=== PATIENT | female | born 1980 | race Caucasian/White ===

== ENCOUNTER 2022-07-20 08:01 | Emergency (ER) | payer OTHER, SELFPAY ==
--- NOTE | 2022-07-20 08:11 | ED.GENADULT ---
HPI - General Adult General Chief complaint: Upper Respiratory Infection Stated complaint: sorethroat Time Seen by Provider: 07/20/22 08:11 Source: patient Mode of arrival: ambulatory Limitations: no limitations History of Present Illness HPI narrative: 42-year-old female patient presents to the [facility] with complaints of sore throat that started last night along with bilateral ear pain and body aches. No fevers that she is aware of. 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 Related Data Home Medications Medication Instructions Recorded Confirmed semaglutide 0.25 mg or 0.5 mg (2 0.25 mg subcut WEEKLY 07/20/22 07/20/22 mg/1.5 mL) subcutaneous pen injector (Ozempic) Allergies Allergy/AdvReac Type Severity Reaction Status Date / Time iodine Allergy Severe SHOCK Verified 07/20/22 08:21 CEFADROXIL HYDRATE Allergy Intermediate HIVES Uncoded 07/20/22 08:21 Review of Systems Review of Systems: CONSTITUTIONAL: Denies fever, chills, or sweats. EYES: Denies visual changes, redness, or discharge. ENT: Denies rhinorrhea, congestion, Positive sore throat, positive bilateral otalgia. CARDIOVASCULAR: Denies chest pain, palpitations, or edema. RESPIRATORY: Denies cough or dyspnea. GASTROINTESTINAL: Denies abdominal pain, nausea, vomiting, or diarrhea. GENITOURINARY: Denies dysuria or hematuria. SKIN: Denies rash or itching. MUSCULOSKELETAL: Denies back pain, joint pain, or myalgia. NEUROLOGIC: Denies headache, numbness, or weakness. PSYCHIATRIC: Denies anxiety or depression. [facility] Past Medical History Medical History Anxiety BMI 38.0-38.9,adult COVID-19 Depression Encounter for IUD insertion 10/07/12 Mirena insertion 12/15/14 Paragard insertion Encounter for IUD removal 07/12/13 Mirena removal 09/01/17 Paragard removal Encounter to establish care Hx of headache Migraines Seasonal allergies Vitamin D deficiency Surgical History Surgical History History of bilateral salpingectomy (10/23/17) History of bladder suspension procedure (09/04/20) History of endometrial ablation (10/23/17) hscope endometrial ablation/b lscope salping Hx of section 04/25/10 primary c/s--arrest of dilation, direct oblique presentation position 05/26/12 rpt c/s 10/18/14 rpt c/s Family History Family History Father Diabetes mellitus Hypertension Mother Hypertension Grandparent Depression Cerebrovascular accident maternal grandfather Breast cancer maternal grandmother Grandparent Heart disease Diabetes mellitus paternal grandmother Social History Social History Smoking status: Never smoker Alcohol intake: never Substance use: never Comments At the time of my signature I agree with nursing past medical history, surgical, social, and family history. There is no relevant family history pertinent to the presenting complaint. Exam Narrative: GENERAL: Well-appearing, well-nourished, and in no acute distress. HEAD: Normocephalic, atraumatic. EYES: PERRLA and EOMI. ENT: Nares clear, no rhinorrhea or epistaxis. Mucous membranes moist. posterior pharynx with erythema present. No tonsillar enlargement, no exudates or lesions present. Bilateral TMs do show a little bit of fluid behind the TMs. NECK: Supple. No lymphadenopathy CHEST: Clear to auscultation. No respiratory distress. HEART: Regular rate and rhythm. No murmur heard. Normal peripheral pulses. ABDOMEN: Soft, nontender, nondistended, normal active bowel sounds. EXTREMITIES: Normal range of motion. No edema. SKIN: Warm, dry, no rash. NEURO: No focal deficits. Alert and oriented x3. Course Course Level of Care: Express Care Visit Vital Signs
[2022-07-20 08:26] VITALS: BP 116/75; PULSE 84; RESP 16; TEMP 36.4; O2SAT 100
== END 2022-07-20 08:33 | disposition home or self-care (01) ==
PROVIDERS: Emergency Provider Nurse Practitioner Family; PCP Family Medicine
DX: J02.0 Streptococcal pharyngitis (principal)
CPT/HCPCS: 87880; 99213; G0463

== ENCOUNTER → 2022-09-12 16:45 | Outpatient (CLI) | payer OTHER, SELFPAY ==
--- NOTE | ~2022-09-12 | MM_ITS ---
EXAMINATION: MM screening gregory BI w price HISTORY: Screening mammogram TECHNIQUE: Craniocaudal and mediolateral oblique 3-D tomosynthesis images were obtained and synthetic 2-D images were generated. CAD analysis was submitted and interpreted. COMPARISON: None BREAST PARENCHYMAL COMPOSITION:The breasts are almost entirely fatty FINDINGS: There is a 1 cm round low-density asymmetry in the inner right breast, only seen on CC view . No parenchymal abnormality of the left breast seen. No suspicious calcifications in either breast. IMPRESSION: 1 cm round low-density asymmetry the inner right breast. This could reflect a mass lesion or possibl y skin lesion. Spot compression view with skin marker (if there is any corresponding skin lesion) and true lateral view, and possibly ultrasound, are recommended for further evaluation at this time. BI-RADS Category 0: Incomplete: Needs additional imaging evaluation. Reviewed, dictated and finalized at [facility]. IMPRESSION: 1 cm round low-density asymmetry the inner right breast. This could reflect a mass lesion or possibly skin lesion. Spot compression view with skin marker (if there is any corresponding skin lesion) and true lateral view, and possibly ul trasound, are recommended for further evaluation at this time. BI-RADS Category 0: Incomplete: Needs additional imaging evaluation.
== END ==
PROVIDERS: PCP Family Medicine; Visit Provider Family Medicine
DX: Z12.31 Encounter for screening mammogram for malignant neoplasm of breast (principal); N64.89 Other specified disorders of breast
CPT/HCPCS: 77063; 77067

== ENCOUNTER → 2022-10-11 13:51 | Outpatient (CLI) | payer OTHER, SELFPAY ==
--- NOTE | ~2022-10-11 | MM_ITS ---
EXAMINATION: MM diagnostic gregory RT w price HISTORY: 1 cm round low-density asymmetry in the mid inner right posterior breast on craniocaudal vie w of 09/12/2022 screening mammogram TECHNIQUE: Additional full field ML and spot CC 3-D tomosynthesis images of the right breast were per formed and synthetic 2-D images were generated. Skin marker was placed. CAD analysis was submitted an d interpreted. COMPARISON: 09/12/2022screening mammogram FINDINGS: The opacity reported in the posterior inner right breast on screening craniocaudal view of 09/12/2022 corresponds to a skin mole marked by a skin marker. IMPRESSION: 1. No mammographic evidence of malignancy 2. Routine annual mammographic screening is recommended. BI-RADS Category 1: Negative Reviewed, dictated and finalized at location A.
== END ==
PROVIDERS: PCP Obstetrics & Gynecology; Visit Provider Family Medicine
DX: R92.8 Other abnormal and inconclusive findings on diagnostic imaging of breast (principal)
CPT/HCPCS: 77061; 77065; G0279

== ENCOUNTER 2023-10-07 15:20 | Outpatient (CLI) | payer OTHER, SELFPAY ==
--- NOTE | ~2023-10-07 | MM_ITS ---
EXAMINATION: MM screening gregory BI w price HISTORY: Screening TECHNIQUE: Craniocaudal and mediolateral oblique 3-D tomosynthesis images were obtained and synthetic 2-D images were generated. CAD analysis was submitted and interpreted. COMPARISON: 09/12/2022 BREAST PARENCHYMAL COMPOSITION: Not dense: There are scattered areas of fibroglandular density. FINDINGS: There is no evidence of suspicious mass, calcification, or architectural distortion to sugg est malignancy in either breast. There has been no suspicious interval change. IMPRESSION: 1. No mammographic evidence of malignancy. 2. Recommend routine screening mammography in one year. BI-RADS Category 1: Negative Reviewed, dictated and finalized at location B.
== END 2023-10-07 15:21 ==
PROVIDERS: PCP Obstetrics & Gynecology; Visit Provider Obstetrics & Gynecology
DX: Z12.31 Encounter for screening mammogram for malignant neoplasm of breast (principal)
CPT/HCPCS: 77063; 77067

== ENCOUNTER 2024-02-28 07:52 | Outpatient (CLI) | payer OTHER, SELFPAY ==
--- NOTE | ~2024-02-28 | XR_ITS ---
EXAM: XR cervical spine 4-5V DATE: 02/28/2024 08:14 HISTORY: Cervicalgia . COMPARISON: None available. FINDINGS: Craniocervical association and atlantoaxial joint are aligned. No prevertebral soft tissue swelling. Mild reversal of the normal lordosis, centered at C5-6. Trace anterolisthesis at C4-5. Tra ce retrolisthesis at C6-7. Vertebral body heights are maintained. Mild disc space narrowing and jose maria nal osteophytosis at C6-7. Mild facet sclerosis and narrowing in the lower cervical spine. IMPRESSION: Mild degenerative disc disease at C6-7. Multilevel trace listheses, described above. Mild lower cervical spine facet arthropathy. Reviewed, dictated and finalized at location K. RANGER
== END 2024-02-28 07:53 | disposition home or self-care (01) ==
LOC: MICIMG 07:53
PROVIDERS: PCP Family Medicine; Visit Provider Family Medicine
DX: M50.323 Other cervical disc degeneration at C6-C7 level (principal); M43.12 Spondylolisthesis, cervical region; M47.812 Spondylosis without myelopathy or radiculopathy, cervical region
CPT/HCPCS: 72050

== ENCOUNTER 2024-07-21 13:43 | Outpatient (CLI) | payer OTHER, SELFPAY ==
--- NOTE | ~2024-07-21 | MR_ITS ---
MRI of the cervical spine Clinical History: Spondylosis Technique: Axial T2-weighted and gradient images, and sagittal T1-weighted, T2-weighted, and STIR sandra ges were acquired. Findings: There is no fracture or subluxation of the cervical spine. Vertebral bodies maintain normal height and line. No significant bone marrow signal abnormality evident. No significant disc bulge or herniation seen at any cervical level. There are scattered areas of mild facet arthropathy in the cervical spine. No spinal canal stenosis, cord compression, or neural dalia inal narrowing identified. No epidural mass or collection. No abnormal signal seen in the spinal cord. Paravertebral soft tissue s are unremarkable. Impression: No significant abnormality. Reviewed, dictated and finalized at location . Impression: No significant abnormality.
== END 2024-07-21 13:44 | disposition home or self-care (01) ==
PROVIDERS: PCP Family Medicine; Visit Provider Physical Medicine & Rehabilitation
DX: M47.812 Spondylosis without myelopathy or radiculopathy, cervical region (principal)
CPT/HCPCS: 72141

== ENCOUNTER 2024-10-08 13:22 | Outpatient (CLI) | payer OTHER, SELFPAY ==
--- NOTE | ~2024-10-08 | MM_ITS ---
EXAMINATION: MM screening [facility] BI w price HISTORY: Screening TECHNIQUE: Craniocaudal and mediolateral oblique 3-D tomosynthesis images were obtained and synthetic 2-D images were generated. CAD analysis was submitted and interpreted. COMPARISON: Comparison to multiple prior studies sequentially, with oldest reviewed study dated 09/12. BREAST PARENCHYMAL COMPOSITION: Not Dense: The breasts are almost entirely fatty. FINDINGS: There is no evidence of suspicious mass, calcification, or architectural distortion to sugg est malignancy in either breast. There has been no suspicious interval change. IMPRESSION: 1. No mammographic evidence of malignancy. 2. Recommend routine screening mammography in one year. BI-RADS Category 1: Negative Reviewed, dictated and finalized at location A.
== END 2024-10-08 13:23 | disposition home or self-care (01) ==
LOC: MICIMG 13:23
PROVIDERS: PCP Family Medicine; Visit Provider Obstetrics & Gynecology
DX: Z12.31 Encounter for screening mammogram for malignant neoplasm of breast (principal)
CPT/HCPCS: 77063; 77067